=== PATIENT | male | born 1985 | race Caucasian/White ===

== ENCOUNTER 2019-04-17 22:16 | Emergency (ER) | payer BC, OTHER ==
[2019-04-17] MEDS ORDERED: Albuterol 6.7 GM Inhaler INH ONE (22:31)
[2019-04-17] MEDS ORDERED: Diphtheria,Pertussis(Acell),Tetanus Vaccine 0.5 ML Syringe IM ONE (22:31)
[2019-04-17] MEDS ORDERED: Dexamethasone 10 MG/ML SDV IM ONE (22:31)
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
[2019-04-17] MEDS ORDERED: Albuterol 8 GM Inhaler INH ONE ×2 (22:38→22:40)
[2019-04-17 22:45] VITALS: BP 113/89; PULSE 126
== END 2019-04-17 23:00 ==
LOC: MW.ED 22:16
DX: S01.21XA Laceration without foreign body of nose, initial encounter (principal); J45.901 Unspecified asthma with (acute) exacerbation; Z23 Encounter for immunization; Y04.2XXA Assault by strike against or bumped into by another person, initial encounter; Y93.89 Activity, other specified; Y92.411 Interstate highway as the place of occurrence of the external cause
CPT/HCPCS: 90471; 90715; 96372; 99283; J1100